=== PATIENT | male | born 1955 ===

== ENCOUNTER 2018-03-29 07:17 | Outpatient (CLI) | payer SELFPAY | END 2018-03-29 07:18 | disposition home or self-care (01) | LOC: C.LAB 07:17 | DX: E11.9 Type 2 diabetes mellitus without complications (principal); I10 Essential (primary) hypertension; E78.00 Pure hypercholesterolemia, unspecified; N41.9 Inflammatory disease of prostate, unspecified; N39.0 Urinary tract infection, site not specified ==